=== PATIENT | female | born 1935 | race Caucasian/White ===

== ENCOUNTER 2017-03-15 00:09 | Inpatient (IN) | payer OTHER, MEDICARE ==
[~2017-03-15] VITALS: Ht 157.5 cm; Wt 51.8 kg
[~2017-03-15 00:09] MED LIST: ALDACTONE25 MG PO; ALLEGRA180 MG; ALTACE10 MG PO; AMILORIDE HCL-1 EACH; APAP500 PO; ASPIR 8181 MG PO; ATORVASTATIN CA40 MG PO; BUMETANIDE 1 MG1 M1 PO; BUMEX PO; CORGARD40 M1; COUMADIN 5 MG TA5 M1; FOSINOPRIL SODI20 M1 PO; GLUCOSAMINE &1 EACH; K-DUR 20 MEQ T20 MEQ PO; K-DUR10 ME1; LANOXIN 0.250.25 M1; LEVOTHYROXINE 0.1 MG PO; LISINOPRIL20 MG PO; PRADAXA150 MG PO; PROTONIX40 M1 PO; SIMVASTATIN80 MG PO; SORINE 80 MG TA80 M1 PO; SYNTHROID75 MCG; SYNTHROID75 MCG PO; TENORMIN25 MG PO; TENORMIN50 MG PO; TOPROL XL25 MG PO; TUMS DUAL ACTI1 EACH; VITAMIN D3400 UNIT PO; XALATAN2.5 ML OPHTHALMIC
[2017-03-15 00:10] VITALS: BP 118/81
[2017-03-15] MEDS ORDERED: ATIVAN0.5 MG PO (01:12)
[2017-03-15] MEDS ORDERED: OXYCODONE10 MG/0.5 PO (01:12)
[2017-03-15 02:35] VITALS: BP 117/78
[2017-03-15 03:00] VITALS: BP 125/77
[2017-03-15 08:08] VITALS: BP 113/71
[2017-03-15 15:50] VITALS: BP 114/70
[2017-03-15 21:04] VITALS: BP 107/65
[2017-03-16 07:30] VITALS: BP 105/54
[2017-03-16 18:27] LABS: ABSOLUTE NEUTROPHILS 3.7 thou/uL (1.4-8.2); BASOPHILS 0.9 % (0.0-2.0); EOSINOPHILS 1.3 % (0.0-3.0); HEMATOCRIT 33.8 % (37.0-47.0); HEMOGLOBIN 10.7 gm/dL (12.0-15.0); LYMPHOCYTES 21.4 % (24.0-44.0); MCHC 31.6 g/dL (28.0-37.0); MCV 85.6 fL (80.0-100.0); MONOCYTES 10.7 % (1.0-8.0); PLATELET COUNT 199 thou/uL (150-400); POLYS 65.7 % (36.0-66.0); RBC 3.95 mil/uL (4.20-5.00); RDW 20.1 % (10.5-14.5); WBC 5.6 thou/uL (4.0-11.0)
[2017-03-16 18:28] LABS: MANUAL DIFF NO
[2017-03-16 18:34] LABS: CALCIUM 8.2 mg/dL (8.5-10.1); CREATININE 1.1 mg/dL (0.6-1.0); POTASSIUM 3.1 mmol/L (3.5-5.1)
[2017-03-16 20:10] VITALS: BP 118/77
[2017-03-17 00:55] VITALS: BP 117/79
[2017-03-17 03:50] VITALS: BP 114/79
[2017-03-17 09:21] VITALS: BP 112/85
[2017-03-17 16:00] VITALS: BP 126/68
[2017-03-17 20:23] VITALS: BP 103/84
[2017-03-18 04:26] VITALS: BP 107/76
[2017-03-18 07:50] VITALS: BP 113/85
[2017-03-18 08:56] VITALS: BP 113/85
== END 2017-03-18 14:13 | DRG 535 ==
LOC: ER 00:09 → EROBS 02:05 → 5S 02:05 → 4N 03-16 16:42
PROVIDERS: Hospitalist
DX: S72.102A Unspecified trochanteric fracture of left femur, initial encounter for closed fracture (principal); E43 Unspecified severe protein-calorie malnutrition; I50.42 Chronic combined systolic (congestive) and diastolic (congestive) heart failure; J96.11 Chronic respiratory failure with hypoxia; I25.10 Atherosclerotic heart disease of native coronary artery without angina pectoris; I27.2 Other secondary pulmonary hypertension; H40.9 Unspecified glaucoma; I48.2 Chronic atrial fibrillation; I25.5 Ischemic cardiomyopathy; I34.0 Nonrheumatic mitral (valve) insufficiency; Z88.8 Allergy status to other drugs, medicaments and biological substances; I11.0 Hypertensive heart disease with heart failure; I73.9 Peripheral vascular disease, unspecified; I71.4 Abdominal aortic aneurysm, without rupture; E03.9 Hypothyroidism, unspecified; E78.5 Hyperlipidemia, unspecified; I25.2 Old myocardial infarction; Z90.12 Acquired absence of left breast and nipple; Z95.1 Presence of aortocoronary bypass graft; Z90.49 Acquired absence of other specified parts of digestive tract; Z95.820 Peripheral vascular angioplasty status with implants and grafts; Z90.710 Acquired absence of both cervix and uterus; Z88.1 Allergy status to other antibiotic agents; Z88.6 Allergy status to analgesic agent; Z88.2 Allergy status to sulfonamides; Z91.041 Radiographic dye allergy status; Z87.891 Personal history of nicotine dependence; Z85.3 Personal history of malignant neoplasm of breast; Z79.82 Long term (current) use of aspirin; Z79.899 Other long term (current) drug therapy; Z68.20 Body mass index [BMI] 20.0-20.9, adult; W18.39XA Other fall on same level, initial encounter; Y93.89 Activity, other specified; Y92.098 Other place in other non-institutional residence as the place of occurrence of the external cause; Z82.3 Family history of stroke; Y99.8 Other external cause status
CPT/HCPCS: 10086; 10790